=== PATIENT | male | born 1980 | race Caucasian/White ===

== ENCOUNTER 2019-10-20 10:32 | Emergency (ER) | payer MEDICAID ==
[~2019-10-20] VITALS: Ht 188 cm; Wt 84.1 kg
[2019-10-20 11:56] LABS: BASOPHILS % (AUTO) 0.4 % (0.0-2.0); EOSINOPHILS % (AUTO) 0 % (1.0-6.0); HEMATOCRIT 39.7 % (41-53); LYMPHOCYTES % (AUTO) 12.3 % (22.0-44.0); MEAN CORPUSCULAR HEMOGLOBIN 26.6 pg (26.0-34.0); MEAN CORPUSCULAR HGB CONC 32.7 G/dL (31.0-37.0); MEAN CORPUSCULAR VOLUME 81 fL (80-100); MONOCYTES # (AUTO) 0.8 K/uL (0.1-1.0); MONOCYTES % (AUTO) 4.7 % (2.0-9.0); NEUTROPHILS # (AUTO) 13.6 K/uL (1.8-7.7); NEUTROPHILS % (AUTO) 82.6 % (40.0-70.0); PLATELET COUNT (AUTO) 490 K/uL (150-450); RED BLOOD CELL COUNT(AUTO) 4.88 MIL/uL (4.50-5.90); RED CELL DISTRIBUTION WIDTH 17.1 % (11.5-14.5)
[2019-10-20] MEDS ORDERED: CefTRIAXone 1 GM/DEXTROSE 50 ML IV ONE (12:00)
[2019-10-20 12:05] LABS: ANION GAP 8 mmol/L (8-16); CALCIUM, TOTAL 9.4 mg/dL (8.8-10.5); CARBON DIOXIDE 28 mmol/L (22-29); CHLORIDE 98 mmol/L (98-107); CREATININE 0.93 mg/dL (0.60-1.30); GLOMERULAR FILTR. RATE CALC > 60 mL/min (>60); GLUCOSE,RANDOM 153 mg/dL (70-110); SODIUM SERUM 134 mmol/L (136-145); UREA NITROGEN, BLOOD 15 mg/dL (7-18)
[2019-10-20 12:11] LABS: ALANINE AMINOTRANSFERASE 11 U/L (12-78); ALBUMIN 3.3 g/dL (3.4-5.0); ALKALINE PHOSPHATASE 80 U/L (46-116); ASPARTATE AMINOTRANSFERASE 12 U/L (15-37); BILIRUBIN,TOTAL 0.7 mg/dL (0.1-1.0); TOTAL PROTEIN, SERUM 9.2 g/dL (6.4-8.2)
[2019-10-20 12:19] LABS: LACTIC ACID 1.3 mmol/L (0.4-2.0)
[2019-10-20] MEDS ORDERED: SULFAMETHOX/TRIMETH DS 800-160 MG/TABLET PO ONE (12:30)
[2019-10-20 12:45] VITALS: BP 111/76
== END 2019-10-20 12:56 | disposition home or self-care (01) ==
LOC: EMS 10:35
DX: L02.414 Cutaneous abscess of left upper limb (principal); L03.114 Cellulitis of left upper limb; F19.10 Other psychoactive substance abuse, uncomplicated; J45.909 Unspecified asthma, uncomplicated
CPT/HCPCS: 36415; 80053; 83605; 85025; 96365; 99283; J0696